=== PATIENT | male | born 1980 | race African-American/Black ===

== ENCOUNTER 2016-02-19 03:07 | Emergency (ER) | payer OTHER ==
[~2016-02-19] VITALS: Ht 170.2 cm; Wt 59.0 kg
[2016-02-19 02:59] VITALS: BP 138/90
[2016-02-19 04:00] VITALS: BP 108/71
--- NOTE | 2016-02-19 05:32 | Emergency Room Report ---
History of Present Illness General Chief Complaint: Alcohol Intoxication Source: Friend, EMS Present Illness HPI Is a 35-year-old male with no past medical history per his friend. They were out partying for Trish. He was drinking heavily tonight. He is very intoxicated and unable to walk. He was vomiting. His friend is to call 911. Unable to get much history from the patient otherwise. There were no drug use or trauma. Allergies: Coded Allergies: UNABLE TO ASSESS (Unverified , 02/19/16) Patient History Past Medical History: none, see triage record, old chart reviewed Past Surgical History: none Social History: Reports: alcohol use Immunizations: other Reviewed Nursing Documentation: PMH: Agreed, PSxH: Agreed Nursing Documentation-PMH Past Medical History: Deferred Review of Systems Eye: Denies: blurred vision, eye pain ENT: Denies: ear pain, nose congestion, throat swelling Respiratory: Denies: cough, shortness of breath Cardiovascular: Denies: chest pain, palpitations Gastrointestinal: Denies: abdominal pain, diarrhea, nausea, vomiting Musculoskeletal: Denies: back pain, joint pain Skin: Denies: rash Neurological: Denies: headache, numbness Endocrine: Denies: increased thirst, increased urine Hematologic/Lymphatic: Denies: easy bruising All Other Systems: limited - Secondary to intoxication Physical Exam Vital Signs Date Time Temp Pulse Resp B/P Pulse Ox O2 Delivery O2 Flow Rate FiO2 02/19/16 02:52 78 18 138/90 97 Room Air 02/19/16 02:59 97.9 vitals normal Sp02 EP Interpretation: reviewed, normal General Appearance: well appearing, no apparent distress, other - Very intoxicated Head: normocephalic, atraumatic Eyes: bilateral eye EOMI, bilateral eye PERRL ENT: hearing grossly normal, normal pharynx Neck: full range of motion, supple, no meningismus Respiratory: chest non-tender, lungs clear, normal breath sounds Cardiovascular #1: regular rate, rhythm, no murmur Gastrointestinal: normal bowel sounds, non tender, no mass, no organomegaly, no bruit, non-distended Musculoskeletal: back normal, normal range of motion Neurologic: other - No focal deficit Psychiatric: mood/affect normal Skin: warm/dry Medical Decision Making Diagnostic Impression: Primary Impression: Acute alcoholic intoxication Qualified Codes: F10.120 - Alcohol abuse with intoxication, uncomplicated ER Course Patient with alcohol intoxication. No trauma to warrant x-ray or CT scan. We' ll observe until clinical sobriety. We'll discharge home afterward. Last Vital Signs Date Time Temp Pulse Resp B/P Pulse Ox O2 Delivery O2 Flow Rate FiO2 02/19/16 04:00 73 14 108/71 99 Room Air 02/19/16 02:59 97.9 Status: improved Disposition: HOME, SELF-CARE Condition: Stable Referrals: NON PHYSICIAN (PCP) Patient Instructions: Alcohol Intoxication, [id number] Additional Instructions: Followup with your Dr. in 7 days. Abstain from drinking to excess. Return if worse. CONCEPCIÓN HOOK M.D. Feb 19, 2016 05:31
[2016-02-19 05:49] VITALS: BP 114/78
[2016-02-19 05:50] VITALS: BP 114/78
== END 2016-02-19 05:50 | disposition home or self-care (01) ==
LOC: EDBD 03:07 → EMR 04:34
DX: F10.129 Alcohol abuse with intoxication, unspecified (principal); R11.10 Vomiting, unspecified
CPT/HCPCS: 99283